=== PATIENT | female | born 1950 | race Caucasian/White ===

== ENCOUNTER 2019-12-13 18:41 | Emergency (ER) | payer OTHER ==
[2019-12-13 18:56] VITALS: TEMP 97.3; BMI 22.6
--- NOTE | 2019-12-13 19:58 | PDOC ---
History of Present Illness - General Chief Complaint: Blood Sugar Problem Stated Complaint: DIABETIC Time Seen by Provider: 12/13/19 19:58 History Source: Patient Exam Limitations: No Limitations - History of Present Illness Initial Comments: 12/13/19 19:58 Belle Ward is a 69F with PMH IDDM presenting with hypoglycemia. Patient was at sister's house at 4PM today, suddenly became diaphoretic and confused, sister recognized hypoglycemia and EMS called, patient brought to [facility] ED for further evaluation. BGM at that time 44. Patient now alert and oriented and back to baseline mental status. Last PO intake 12PM today had toast and some jelly. Ate some juice while waiting in ED. Medications: Janumet 500mg BID, metformin 1000mg, insulin #10, Lantus 40mg QS pre-prandial. Took all her insulin as scheduled today. Otherwise denies any symptoms at this time. No PSH Other meds: lisinopril, rosuvastatin, ASA NKDA Denies alcohol/tobacco/drugs Past History - Medical History Allergies/Adverse Reactions: Allergies Allergy/AdvReac Type Severity Reaction Status Date / Time No Known Allergies Allergy Verified 02/20/12 19:10 Home Medications: Ambulatory Orders Metoprolol Tartrate [Lopressor -] 25 mg PO DAILY 02/21/12 Simvastatin [Zocor -] 40 mg PO HS 02/21/12 Insulin (Novolog) [Novolog Flexpen -] 0 units SQ ACHS #0 pen 02/22/12 Lisinopril 20Mg/Hctz 12.5MG [Zestoretic 20/12.5 (Nf)] 1 tab PO DAILY 02/22/12 Sitagliptin Phosphate [Januvia -] 50 mg PO DAILY@0700 #0 tablet 02/22/12 metFORMIN HCL [Glucophage -] 500 mg PO BIDAC #0 tablet 02/22/12 COPD: No Diabetes: Yes (NIDDM) HTN: Yes Hypercholesterolemia: Yes - Psycho-Social/Smoking History Smoking Status: No Smoking History: Never smoked Have you smoked in the past 12 months: No Number of Cigarettes Smoked Daily: 0 Information on smoking cessation initiated: No - Substance Abuse Hx (Audit-C & DAST Scrn) How often the patient has a drink containing alcohol: Never Score: In Men: 4 or > Positive; In Women: 3 or > Positive: 0 Screen Result (Pos requires Nsg. Audit-10AR): Negative In the last yr the pt used illegal drug/Rx for NonMed reason: No Score: Yes response is considered Positive: 0 Screen Result (Positive result requires Nsg. DAST-10): Negative Review of Systems - Review of Systems Able to Perform ROS?: Yes Constitutional: Yes: Diaphoresis HEENTM: No: Symptoms Reported Respiratory: No: Cough, Shortness of Breath Cardiac (ROS): Yes: Lightheadedness. No: Palpitations, Syncope ABD/GI: No: Constipated, Diarrhea, Poor Appetite, Poor Fluid Intake : No: Symptoms Reported Musculoskeletal: No: Symptoms Reported Integumentary: No: Symptoms Reported Neurological: No: Symptoms reported Endocrine: No: Symptoms Reported Hematologic/Lymphatic: No: Symptoms Reported All Other Systems: Reviewed and Negative *Physical Exam - Vital Signs Last Vital Signs Temp Pulse Resp BP Pulse Ox 97.3 F L 90 20 160/74 99 12/13/19 18:49 12/13/19 18:49 12/13/19 18:49 12/13/19 18:49 12/13/19 18:49 - Physical Exam General Appearance: Yes: Nourished, Appropriately Dressed, Obese. No: Apparent Distress HEENT: positive: EOMI, GERMAN, Normal Voice, Symmetrical, Pharynx Normal, Hearing Grossly Normal. negative: Scleral Icterus (R), Scleral Icterus (L), Pharyngeal Erythema, Tonsillar Exudate Neck: positive: Normal Thyroid, Supple. negative: Tender, Rigid, Lymphadenopathy (R), Lymphadenopathy (L) Respiratory/Chest: positive: Lungs Clear, Normal Breath Sounds. negative: Chest Tender, Respiratory Distress, Accessory Muscle Use, Crackles, Rales, Rhonchi, Stridor, Wheezing Cardiovascular: positive: Regular Rhythm, Regular Rate. negative: Tachycardia, Irregularly Irregular Gastrointestinal/Abdominal: positive: Normal Bowel Sounds, Flat, Soft. negative: Tender, Organomegaly, Pulsatile Mass, Guarding, Rebound Musculoskeletal: positive: Normal Inspection. negative: CVA Tenderness, CVA Tenderness (R), CVA Tenderness (L), Decreased Range of Motion Extremity: positive: Normal Capillary Refill, Normal Inspection, Normal Range of Motion. negative: Tender Integumentary: positive: Normal Color, Dry, Warm. negative: Diaphoresis Neurologic: positive: Fully Oriented, Alert, Normal Mood/Affect, Normal Response, Motor Strength 5/5. negative: Confused, Disoriented ED Treatment Course - ADDITIONAL ORDERS Additional order review: Laboratory Results 12/13/19 18:51 POC Glucometer 149 12/13/19 18:51 POC Glucometer 149 Medical Decision Making - Medical Decision Making 12/13/19 20:36 Patient has history of IDDM and was hypoglycemic to 44 today, now back to [facility] [place]. BGM 150s. Has had one episode of this in the past at [facility]. Patient does take a lot of metformin and insulin and does not seem to have eaten much today. Discussed insulin use and checking BGM, patient demonstrates limitd understanding of how insulin works. VSS. Drinking juice and crackers, alert and oriented. Can safely discharge home with Dr. Cast for IDDM f/u. Recommend closer DM management and education. Discharge - Discharge Information Problems reviewed: Yes Clinical Impression/Diagnosis: Hypoglycemia Condition: Stable Disposition: HOME - Admission No - Follow up/Referral Referrals: Anna Cast MD [Primary Care Provider] - - Patient Discharge Instructions Patient Printed Discharge Instructions: DI for Diabetes Type 1 -- Adult Additional Instructions: Today you were evaluated for low blood sugar. You are feeling well now, and your blood sugar is normal now. You have to be careful to not use too much insulin, as this will cause your problems again. If this happens again, drink or eat something immediately and do not use your insulin. Please see Dr. Cast this week for further care and management of your diabetes. If you experience any worsening symptoms such as nausea, vomiting, confusion, and sweating, try to drink some juice and come back to the emergency room. - Post Discharge Activity
--- NOTE | 2019-12-13 20:59 | PDOC ---
Documentation entered by Melissa Perdomo SCRIBE, acting as scribe for Siri Aguilera MD. Siri Aguilera MD: This documentation has been prepared by the Conor mac Brenda, SCRIBE, under my direction and personally reviewed by me in its entirety. I confirm that the documentation accurately reflects all work, treatment, procedures, and medical decision making performed by me. Attending Attestation - Resident Resident Name: Maximo Wilhelm - ED Attending Attestation I have performed the following: I have examined & evaluated the patient, The case was reviewed & discussed with the resident, I agree w/resident's findings & plan, Exceptions are as noted - HPI HPI: 12/13/19 20:39 The patient is a 69 year old female, with a significant PMH of IDDM (on metformin - few episodes in past of hypoglycemia) who presents to the emergency department for evaluation of hypoglycemia, which she notes was 44 four hours ago. Patient states she ate toast for lunch and took her normal insulin and nothing else. The patient denies chest pain, shortness of breath, headache and dizziness. Denies fever, chills, nausea, vomiting, diarrhea and constipation. Denies dysuria, frequency, urgency and hematuria. Allergies: NKA Social history: No reported hx of tobacco use, alcohol use or illicit drug use. PCP: Segun - Physicial Exam PE: 12/13/19 20:58 NAD, well appearing rrr ctabl soft ntnd gait, blance, speech WNL A&O x 3 - Medical Decision Making 12/13/19 20:58 69yoF w/ epsode of hypoglycemia after takng insulin and not eating. Feeling fine, FS stable x multple hours by the time pt is evaluated in the ED. - DC. Discharge - Discharge Information Problems reviewed: Yes Clinical Impression/Diagnosis: Hypoglycemia Condition: Stable Disposition: HOME - Follow up/Referral Referrals: Anna Cast MD [Primary Care Provider] - - Patient Discharge Instructions Patient Printed Discharge Instructions: DI for Diabetes Type 1 -- Adult Additional Instructions: Today you were evaluated for low blood sugar. You are feeling well now, and your blood sugar is normal now. You have to be careful to not use too much insulin, as this will cause your problems again. Please see Dr. Segun for further care and management of your diabetes. - Post Discharge Activity
[2019-12-13 23:11] VITALS: BP 167/74; PULSE 85
== END 2019-12-13 21:20 | disposition home or self-care (01) ==
LOC: JER 18:41
DX: E13.649 Other specified diabetes mellitus with hypoglycemia without coma (principal)
CPT/HCPCS: 82962; 99283-25

== ENCOUNTER 2021-07-08 12:42 | Inpatient (IN) | payer OTHER ==
[2021-07-08] MEDS ORDERED: VANCOMYCIN 1 GM in D5W (PRE-DOCKED) 1,000 MG/250 ML IVPB ONE (14:46)
[2021-07-08] MEDS ORDERED: PIPERACILLIN/TAZOB 4.5 GM 4.5 GM in DEXTROSE 5%-WATER 100 ML IVPB ONE (14:48)
[2021-07-08 15:10] LABS: BASO % 1.2 % (0-2.0); EOS % 0.8 % (0-4.5); HEMOGLOBIN 11.3 GM/dL (10.7-15.3); LYMPH % 18.7 % (8-40); MCH 30.4 pg (25.7-33.7); MCHC 33.4 g/dl (32.0-36.0); MEAN CELL VOLUME 91.2 fl (80-96); MEAN PLT VOLUME 9.4 fl (7.5-11.1); MONO % 6.9 % (3.8-10.2); NEUT % 72.4 % (42.8-82.8); PLATELET COUNT 383 10^3/uL (134-434); RBC 3.73 M/mm3 (3.60-5.2); RDW 16.3 % (11.6-15.6); WHITE BLOOD COUNT 10.7 K/mm3 (4.0-10.0)
[2021-07-08] MEDS ORDERED: PIPERACILLIN/TAZOB 4.5 GM 4.5 GM/100 ML BAG IVPB ONE (15:13)
[2021-07-08] MEDS ORDERED: VANCOMYCIN 1 GRAM (PRE-DOCKED) 1,000 MG/250 ML BAG IVPB ONE (15:13)
[2021-07-08 15:16] LABS: INR 1.07 (0.83-1.09); PROTHROMBIN TIME (PATIENT) 12.3 SEC (9.7-13.0)
[2021-07-08 15:19] LABS: ACTIVATED PTT 36.3 SECONDS (25.2-36.5)
[2021-07-08 15:30] LABS: ALBUMIN 3.7 g/dl (3.4-5.0); BLOOD UREA NITROGEN 27.8 mg/dL (7-18)
[2021-07-08 15:35] LABS: BILIRUBIN,TOTAL 0.2 mg/dL (0.2-1); TOT PROT 7.2 g/dl (6.4-8.2)
[2021-07-08] MEDS ORDERED: ACETAMINOPHEN 325 MG TABLET (FP) PO ONE (18:05)
[2021-07-08] MEDS ORDERED: ACETAMINOPHEN 325 MG TABLET (FP) ONE (18:23)
[2021-07-08] MEDS ORDERED: PIPERACILLIN/TAZOBACTAM 3.375 GM VIAL IVPB ONE (22:12)
[2021-07-08] MEDS ORDERED: DEXTROSE 5%-WATER - 50 ML IVPB ONE (22:12)
[2021-07-08] MEDS: HEPARIN NA (PORCINE) 5,000 UNITS/ML 1ML VIAL SQ SCH (22:23)
[2021-07-08] MEDS: INSULIN SLIDING SCALE (NOVOLOG) 1 VIAL SQ SCH (22:26)
[2021-07-08] MEDS: PIPERACILLIN/TAZOB 3.375 GM 3.375 GM in DEXTROSE 5%-WATER - 50 ML IVPB SCH (23:26)
[2021-07-09] MEDS: ACETAMINOPHEN 325 MG TABLET (FP) PO PRN ×4 (01:37→23:54)
[2021-07-09] MEDS: INSULIN SLIDING SCALE (NOVOLOG) 1 VIAL SQ SCH ×4 (06:07→21:40)
[2021-07-09] MEDS ORDERED: DEXTROSE 5%-WATER - 50 ML IVPB ONE ×2 (08:12→17:14)
[2021-07-09] MEDS ORDERED: PIPERACILLIN/TAZOBACTAM 3.375 GM VIAL IVPB ONE ×2 (08:12→17:14)
[2021-07-09] MEDS: HEPARIN NA (PORCINE) 5,000 UNITS/ML 1ML VIAL SQ SCH ×2 (09:00→21:39)
[2021-07-09] MEDS: LISINOPRIL 10 MG TABLET PO SCH (09:00)
[2021-07-09] MEDS: ROSUVASTATIN CA 5 MG TABLET PO SCH (09:00)
[2021-07-09 09:02] LABS: HEMATOCRIT 33.8 % (32.4-45.2); HEMOGLOBIN 11.2 GM/dL (10.7-15.3); MCH 30.3 pg (25.7-33.7); MCHC 33.2 g/dl (32.0-36.0); MEAN CELL VOLUME 91.2 fl (80-96); MEAN PLT VOLUME 8.9 fl (7.5-11.1); PLATELET COUNT 365 10^3/uL (134-434); RDW 16.1 % (11.6-15.6); WHITE BLOOD COUNT 9.3 K/mm3 (4.0-10.0)
[2021-07-09] MEDS: PIPERACILLIN/TAZOB 3.375 GM 3.375 GM in DEXTROSE 5%-WATER - 50 ML IVPB SCH ×2 (09:03→17:33)
[2021-07-09 09:26] LABS: ALBUMIN 3.6 g/dl (3.4-5.0); CALCIUM 9.2 mg/dL (8.5-10.1); CREATININE 0.8 mg/dL (0.55-1.3)
[2021-07-09 09:27] LABS: BILIRUBIN,TOTAL 0.4 mg/dL (0.2-1); MAGNESIUM 1.9 mg/dL (1.8-2.4); TOT PROT 6.9 g/dl (6.4-8.2)
[2021-07-09 09:33] LABS: BLOOD UREA NITROGEN 25.8 mg/dL (7-18)
[2021-07-09 10:56] LABS: ANISOCYTOSIS 0; HELMET CELLS 0; HOWELL-JOLLY BODIES 0; MACROCYTOSIS 0; OVALOCYTE 0; PLATELET ESTIMATE NORMAL; ROULEAU 0; SICKELED CELLS 0; TARGET CELLS 0; TEAR DROP CELLS 0; TOXIC GRANULATION 0
[2021-07-09] MEDS ORDERED: INSULIN (NOVOLOG) ASPART 100 UNITS/ML 10ML VIAL ONE (11:47)
[2021-07-10] MEDS ORDERED: DEXTROSE 5%-WATER - 50 ML IVPB ONE ×3 (01:40→16:49)
[2021-07-10] MEDS ORDERED: PIPERACILLIN/TAZOBACTAM 3.375 GM VIAL IVPB ONE ×3 (01:40→16:49)
[2021-07-10] MEDS: PIPERACILLIN/TAZOB 3.375 GM 3.375 GM in DEXTROSE 5%-WATER - 50 ML IVPB SCH ×3 (02:27→17:36)
[2021-07-10] MEDS: INSULIN SLIDING SCALE (NOVOLOG) 1 VIAL SQ SCH ×4 (06:04→21:12)
[2021-07-10] MEDS: HEPARIN NA (PORCINE) 5,000 UNITS/ML 1ML VIAL SQ SCH ×2 (11:42→21:12)
[2021-07-10] MEDS: LISINOPRIL 10 MG TABLET PO SCH (11:42)
[2021-07-10] MEDS: ROSUVASTATIN CA 5 MG TABLET PO SCH (11:43)
[2021-07-10] MEDS: SODIUM CHLORIDE 1,000 ML IV SCH (12:19)
[2021-07-10 13:20] VITALS: BMI 29.1
[2021-07-10] MEDS: ACETAMINOPHEN 325 MG TABLET (FP) PO PRN ×2 (15:07→21:12)
[2021-07-11] MEDS ORDERED: PIPERACILLIN/TAZOBACTAM 3.375 GM VIAL IVPB ONE ×4 (00:43→16:54)
[2021-07-11] MEDS ORDERED: DEXTROSE 5%-WATER - 50 ML IVPB ONE ×2 (00:43→16:54)
[2021-07-11] MEDS: SODIUM CHLORIDE 1,000 ML IV SCH ×3 (01:09→22:07)
[2021-07-11] MEDS: PIPERACILLIN/TAZOB 3.375 GM 3.375 GM in DEXTROSE 5%-WATER - 50 ML IVPB SCH ×3 (01:09→17:08)
[2021-07-11] MEDS: INSULIN SLIDING SCALE (NOVOLOG) 1 VIAL SQ SCH ×4 (06:06→22:02)
[2021-07-11] MEDS ORDERED: MIDAZOLAM HCL 2 MG/2 ML SINGLE DOSE VIAL ONE (07:21)
[2021-07-11] MEDS ORDERED: NITROGLYCERIN 50 MG/10 ML VIAL IVPB ONE (07:34)
[2021-07-11] MEDS ORDERED: LIDOCAINE HCL 1%, 10 MG/ML (20ML VIAL) ONE (07:35)
[2021-07-11] MEDS ORDERED: HEPARIN NA (PORCINE) 5,000 UNITS/ML 1ML VIAL ONE (07:35)
[2021-07-11] MEDS ORDERED: LIDOCAINE HCL 1%, 10 MG/ML (20ML VIAL) NR ONE ×2 (07:37→09:38)
[2021-07-11] MEDS ORDERED: HEPARIN NA (PORCINE) 5,000 UNITS/ML 1ML VIAL SQ ONE ×2 (07:38→09:44)
[2021-07-11] MEDS ORDERED: IOVERSOL 320 MG/ML ML IV ONE ×2 (07:39→09:44)
[2021-07-11 08:37] LABS: INR 1.09 (0.83-1.09); PROTHROMBIN TIME (PATIENT) 12.6 SEC (9.7-13.0)
[2021-07-11] MEDS ORDERED: LACTATED RINGERS SOLUTION 1,000 ML IV SCH ×2 (10:45→11:31)
[2021-07-11] MEDS ORDERED: PROTAMINE SULFATE 50 MG/5 ML VIAL ONE ×2 (11:34→11:35)
[2021-07-11] MEDS ORDERED: CLOPIDOGREL BISULFATE 75 MG TABLET (FP) ONE (12:43)
[2021-07-11] MEDS: HEPARIN NA (PORCINE) 5,000 UNITS/ML 1ML VIAL SQ SCH ×2 (12:58→21:48)
[2021-07-11] MEDS: ROSUVASTATIN CA 5 MG TABLET PO SCH (12:58)
[2021-07-11] MEDS: LISINOPRIL 10 MG TABLET PO SCH (12:59)
[2021-07-11] MEDS: CLOPIDOGREL BISULFATE 75 MG TABLET (FP) PO SCH (13:05)
[2021-07-11] MEDS ORDERED: PROTAMINE SULFATE 50 MG/5 ML VIAL IVPUSH ONE (13:26)
[2021-07-11] MEDS: ACETAMINOPHEN 325 MG TABLET (FP) PO PRN ×2 (14:13→21:47)
[2021-07-11] MEDS ORDERED: traMADol HCL 50 MG TABLET PO PRN (16:28)
[2021-07-11] MEDS ORDERED: KETOROLAC TROMETHAMINE 30 MG/1 ML VIAL IVPUSH PRN (16:28)
[2021-07-12] MEDS ORDERED: DEXTROSE 5%-WATER - 50 ML IVPB ONE ×3 (00:24→16:41)
[2021-07-12] MEDS ORDERED: PIPERACILLIN/TAZOBACTAM 3.375 GM VIAL IVPB ONE ×3 (00:24→16:40)
[2021-07-12] MEDS: PIPERACILLIN/TAZOB 3.375 GM 3.375 GM in DEXTROSE 5%-WATER - 50 ML IVPB SCH ×3 (01:32→17:41)
[2021-07-12] MEDS: ACETAMINOPHEN 325 MG TABLET (FP) PO PRN ×3 (06:27→21:51)
[2021-07-12] MEDS: INSULIN SLIDING SCALE (NOVOLOG) 1 VIAL SQ SCH ×4 (06:37→21:53)
[2021-07-12 09:06] LABS: HEMATOCRIT 26.1 % (32.4-45.2); HEMOGLOBIN 8.5 GM/dL (10.7-15.3); MCH 30.2 pg (25.7-33.7); MCHC 32.7 g/dl (32.0-36.0); MEAN CELL VOLUME 92.2 fl (80-96); MEAN PLT VOLUME 9.1 fl (7.5-11.1); PLATELET COUNT 254 10^3/uL (134-434); RBC 2.83 M/mm3 (3.60-5.2); RDW 15.9 % (11.6-15.6); WHITE BLOOD COUNT 6.4 K/mm3 (4.0-10.0)
[2021-07-12 09:24] LABS: CALCIUM 7.9 mg/dL (8.5-10.1)
[2021-07-12 09:25] LABS: BLOOD UREA NITROGEN 22.1 mg/dL (7-18)
[2021-07-12 09:28] LABS: CREATININE 0.8 mg/dL (0.55-1.3)
[2021-07-12 09:30] LABS: BILIRUBIN,TOTAL 0.5 mg/dL (0.2-1); TOT PROT 5.2 g/dl (6.4-8.2)
[2021-07-12 09:32] LABS: ALBUMIN 2.7 g/dl (3.4-5.0)
[2021-07-12] MEDS: ROSUVASTATIN CA 5 MG TABLET PO SCH (10:13)
[2021-07-12] MEDS: HEPARIN NA (PORCINE) 5,000 UNITS/ML 1ML VIAL SQ SCH ×2 (10:14→22:02)
[2021-07-12] MEDS: LISINOPRIL 10 MG TABLET PO SCH (10:14)
[2021-07-12] MEDS: CLOPIDOGREL BISULFATE 75 MG TABLET (FP) PO SCH (10:14)
[2021-07-13] MEDS ORDERED: PIPERACILLIN/TAZOBACTAM 3.375 GM VIAL IVPB ONE ×3 (00:16→17:24)
[2021-07-13] MEDS ORDERED: DEXTROSE 5%-WATER - 50 ML IVPB ONE ×3 (00:16→17:25)
[2021-07-13] MEDS: PIPERACILLIN/TAZOB 3.375 GM 3.375 GM in DEXTROSE 5%-WATER - 50 ML IVPB SCH ×3 (01:16→17:28)
[2021-07-13] MEDS: ACETAMINOPHEN 325 MG TABLET (FP) PO PRN ×3 (05:59→22:15)
[2021-07-13] MEDS: INSULIN SLIDING SCALE (NOVOLOG) 1 VIAL SQ SCH ×4 (06:00→22:07)
[2021-07-13 08:20] LABS: HEMATOCRIT 26.4 % (32.4-45.2); HEMOGLOBIN 8.7 GM/dL (10.7-15.3); MCH 30.1 pg (25.7-33.7); MCHC 32.8 g/dl (32.0-36.0); MEAN CELL VOLUME 91.5 fl (80-96); PLATELET COUNT 250 10^3/uL (134-434); RBC 2.88 M/mm3 (3.60-5.2); WHITE BLOOD COUNT 6.3 K/mm3 (4.0-10.0)
[2021-07-13 08:30] LABS: CALCIUM 8.7 mg/dL (8.5-10.1)
[2021-07-13 08:31] LABS: IRON SERUM 68 ug/dL (50-175); MAGNESIUM 1.9 mg/dL (1.8-2.4)
[2021-07-13 08:34] LABS: CREATININE 0.9 mg/dL (0.55-1.3)
[2021-07-13 08:38] LABS: TOTAL IRON BINDING CAPACITY 221 ug/dL (250-450)
[2021-07-13 10:10] LABS: INR 1.13 (0.83-1.09)
[2021-07-13] MEDS: LISINOPRIL 10 MG TABLET PO SCH (10:28)
[2021-07-13] MEDS: ROSUVASTATIN CA 5 MG TABLET PO SCH (10:29)
[2021-07-13] MEDS ORDERED: HEPARIN NA (PORCINE) 5,000 UNITS/ML 1ML VIAL SQ ONE (18:23)
[2021-07-14] MEDS ORDERED: PIPERACILLIN/TAZOBACTAM 3.375 GM VIAL IVPB ONE ×3 (01:03→18:11)
[2021-07-14] MEDS ORDERED: DEXTROSE 5%-WATER - 50 ML IVPB ONE ×3 (01:03→18:11)
[2021-07-14] MEDS: PIPERACILLIN/TAZOB 3.375 GM 3.375 GM in DEXTROSE 5%-WATER - 50 ML IVPB SCH ×3 (02:16→18:16)
[2021-07-14] MEDS: INSULIN SLIDING SCALE (NOVOLOG) 1 VIAL SQ SCH ×4 (07:03→21:34)
[2021-07-14] MEDS: ACETAMINOPHEN 325 MG TABLET (FP) PO PRN ×2 (11:21→21:30)
[2021-07-14] MEDS: ROSUVASTATIN CA 5 MG TABLET PO SCH (11:22)
[2021-07-14] MEDS: LISINOPRIL 10 MG TABLET PO SCH (11:22)
[2021-07-14] MEDS ORDERED: INSULIN (NOVOLOG) ASPART 100 UNITS/ML 10ML VIAL ONE (21:21)
[2021-07-14] MEDS ORDERED: INSULIN (LEVEMIR) 100 UNITS/ML UNITS SQ SCH ×2 (22:00→23:05)
[2021-07-15] MEDS ORDERED: PIPERACILLIN/TAZOBACTAM 3.375 GM VIAL IVPB ONE ×3 (01:55→16:59)
[2021-07-15] MEDS ORDERED: DEXTROSE 5%-WATER - 50 ML IVPB ONE ×3 (01:56→17:00)
[2021-07-15] MEDS: PIPERACILLIN/TAZOB 3.375 GM 3.375 GM in DEXTROSE 5%-WATER - 50 ML IVPB SCH ×3 (02:25→17:29)
[2021-07-15] MEDS: ACETAMINOPHEN 325 MG TABLET (FP) PO PRN ×3 (03:35→17:29)
[2021-07-15] MEDS: INSULIN (LEVEMIR) 100 UNITS/ML UNITS SQ SCH ×2 (06:11→21:03)
[2021-07-15] MEDS: INSULIN (NOVOLOG) ASPART 100 UNITS/ML 10ML VIAL SQ SCH ×3 (06:11→16:33)
[2021-07-15] MEDS: INSULIN SLIDING SCALE (NOVOLOG) 1 VIAL SQ SCH ×4 (06:11→21:04)
[2021-07-15 09:04] LABS: HEMATOCRIT 29.1 % (32.4-45.2); HEMOGLOBIN 9.8 GM/dL (10.7-15.3); MCH 30.7 pg (25.7-33.7); MCHC 33.5 g/dl (32.0-36.0); MEAN CELL VOLUME 91.7 fl (80-96); MEAN PLT VOLUME 8.8 fl (7.5-11.1); PLATELET COUNT 313 10^3/uL (134-434); RBC 3.17 M/mm3 (3.60-5.2); RDW 16.6 % (11.6-15.6)
[2021-07-15 09:29] LABS: BLOOD UREA NITROGEN 24.2 mg/dL (7-18); CALCIUM 8.8 mg/dL (8.5-10.1); MAGNESIUM 2.1 mg/dL (1.8-2.4)
[2021-07-15 09:31] LABS: CREATININE 0.9 mg/dL (0.55-1.3)
[2021-07-15] MEDS: LISINOPRIL 10 MG TABLET PO SCH (09:50)
[2021-07-15] MEDS: ROSUVASTATIN CA 5 MG TABLET PO SCH (09:50)
[2021-07-15 16:23] LABS: INR 1.1 (0.83-1.09); PROTHROMBIN TIME (PATIENT) 12.7 SEC (9.7-13.0)
[2021-07-15] MEDS ORDERED: INSULIN (LEVEMIR) 100 UNITS/ML UNITS SQ SCH ×2 (22:29→22:30)
[2021-07-16] MEDS ORDERED: PIPERACILLIN/TAZOBACTAM 3.375 GM VIAL IVPB ONE ×2 (01:00→16:39)
[2021-07-16] MEDS ORDERED: DEXTROSE 5%-WATER - 50 ML IVPB ONE ×2 (01:00→16:39)
[2021-07-16] MEDS: PIPERACILLIN/TAZOB 3.375 GM 3.375 GM in DEXTROSE 5%-WATER - 50 ML IVPB SCH ×3 (01:22→16:59)
[2021-07-16] MEDS: INSULIN (NOVOLOG) ASPART 100 UNITS/ML 10ML VIAL SQ SCH ×2 (06:03→16:50)
[2021-07-16] MEDS: INSULIN SLIDING SCALE (NOVOLOG) 1 VIAL SQ SCH ×3 (06:04→21:05)
[2021-07-16] MEDS ORDERED: PROPOFOL 20 ML ONE ×3 (07:18→09:24)
[2021-07-16] MEDS ORDERED: MIDAZOLAM HCL 2 MG/2 ML SINGLE DOSE VIAL ONE ×2 (07:18→09:24)
[2021-07-16] MEDS ORDERED: PROMETHAZINE HCL 25 MG/1 ML VIAL IVPB PRN ×2 (09:07→10:42)
[2021-07-16] MEDS ORDERED: ONDANSETRON 4 MG/2 ML VIAL IVPUSH PRN ×2 (09:07→10:42)
[2021-07-16] MEDS ORDERED: LACTATED RINGERS SOLUTION 1,000 ML IV SCH (09:15)
[2021-07-16] MEDS ORDERED: DEXAMETHASONE SOD PHOSPHATE 4 MG/1 ML VIAL ONE (09:15)
[2021-07-16] MEDS ORDERED: LIDOCAINE HCL 1%, 10 MG/ML (20ML VIAL) ONE (09:15)
[2021-07-16] MEDS ORDERED: BUPIVACAINE HCL/PF 0.5% (5MG/ML) 10 ML VIAL ONE (09:16)
[2021-07-16] MEDS ORDERED: fentaNYL CITRATE 250 MCG/5 ML VIAL ONE (09:24)
[2021-07-16] MEDS ORDERED: SODIUM CHLORIDE 0.9% P/F 10 ML VIAL IJ ONE (09:38)
[2021-07-16] MEDS ORDERED: ceFAZolin SODIUM 1 GM VIAL ONE (09:38)
[2021-07-16] MEDS ORDERED: LIDOCAINE HCL/PF 2% SDV 5ML VIAL ONE (09:42)
[2021-07-16] MEDS ORDERED: LIDOCAINE HCL 1%, 10 MG/ML (20ML VIAL) INF ONE (09:43)
[2021-07-16] MEDS ORDERED: BUPIVACAINE HCL/PF 0.5% (5MG/ML) 10 ML VIAL IJ ONE (09:43)
[2021-07-16] MEDS ORDERED: GENTAMICIN SO4 80 MG/2 ML VIAL ONE (09:59)
[2021-07-16] MEDS ORDERED: GENTAMICIN SO4 80 MG/2 ML VIAL IVPB ONE (10:01)
[2021-07-16] MEDS ORDERED: KETOROLAC TROMETHAMINE 30 MG/1 ML VIAL IVPUSH PRN (10:42)
[2021-07-16] MEDS: LACTATED RINGERS SOLUTION 1,000 ML IV SCH (11:41)
[2021-07-16] MEDS: LISINOPRIL 10 MG TABLET PO SCH (11:42)
[2021-07-16] MEDS: ROSUVASTATIN CA 5 MG TABLET PO SCH (11:42)
[2021-07-16] MEDS: ACETAMINOPHEN 325 MG TABLET (FP) PO PRN (16:56)
[2021-07-16] MEDS: INSULIN (LEVEMIR) 100 UNITS/ML UNITS SQ SCH (21:04)
[2021-07-17] MEDS ORDERED: DEXTROSE 5%-WATER - 50 ML IVPB ONE ×3 (00:54→17:18)
[2021-07-17] MEDS ORDERED: PIPERACILLIN/TAZOBACTAM 3.375 GM VIAL IVPB ONE ×3 (00:54→17:18)
[2021-07-17] MEDS: PIPERACILLIN/TAZOB 3.375 GM 3.375 GM in DEXTROSE 5%-WATER - 50 ML IVPB SCH ×3 (01:21→17:48)
[2021-07-17] MEDS: ACETAMINOPHEN 325 MG TABLET (FP) PO PRN ×3 (01:44→22:28)
[2021-07-17] MEDS: INSULIN (LEVEMIR) 100 UNITS/ML UNITS SQ SCH ×2 (06:32→22:26)
[2021-07-17] MEDS: INSULIN (NOVOLOG) ASPART 100 UNITS/ML 10ML VIAL SQ SCH ×3 (06:33→17:14)
[2021-07-17] MEDS: INSULIN SLIDING SCALE (NOVOLOG) 1 VIAL SQ SCH ×4 (06:33→22:24)
[2021-07-17 08:40] LABS: HEMATOCRIT 27.6 % (32.4-45.2); HEMOGLOBIN 9.2 GM/dL (10.7-15.3); MCH 30.7 pg (25.7-33.7); MCHC 33.3 g/dl (32.0-36.0); MEAN CELL VOLUME 92.3 fl (80-96); MEAN PLT VOLUME 8.7 fl (7.5-11.1); PLATELET COUNT 290 10^3/uL (134-434); RBC 2.99 M/mm3 (3.60-5.2); WHITE BLOOD COUNT 8.7 K/mm3 (4.0-10.0)
[2021-07-17 09:01] LABS: ALBUMIN 2.8 g/dl (3.4-5.0); BLOOD UREA NITROGEN 31.2 mg/dL (7-18); CALCIUM 8.9 mg/dL (8.5-10.1)
[2021-07-17 09:02] LABS: CREATININE 0.9 mg/dL (0.55-1.3)
[2021-07-17 09:03] LABS: BILIRUBIN,TOTAL 0.3 mg/dL (0.2-1)
[2021-07-17 09:04] LABS: TOT PROT 5.7 g/dl (6.4-8.2)
[2021-07-17] MEDS: ROSUVASTATIN CA 5 MG TABLET PO SCH (09:14)
[2021-07-17] MEDS: LISINOPRIL 10 MG TABLET PO SCH (09:14)
[2021-07-17] MEDS: LACTATED RINGERS SOLUTION 1,000 ML IV SCH (11:35)
[2021-07-18] MEDS ORDERED: DEXTROSE 5%-WATER - 50 ML IVPB ONE ×3 (00:59→17:20)
[2021-07-18] MEDS ORDERED: PIPERACILLIN/TAZOBACTAM 3.375 GM VIAL IVPB ONE ×3 (00:59→17:20)
[2021-07-18] MEDS: PIPERACILLIN/TAZOB 3.375 GM 3.375 GM in DEXTROSE 5%-WATER - 50 ML IVPB SCH ×3 (02:24→17:31)
[2021-07-18] MEDS: INSULIN SLIDING SCALE (NOVOLOG) 1 VIAL SQ SCH ×4 (06:34→21:47)
[2021-07-18] MEDS: INSULIN (LEVEMIR) 100 UNITS/ML UNITS SQ SCH ×2 (06:35→21:49)
[2021-07-18] MEDS: INSULIN (NOVOLOG) ASPART 100 UNITS/ML 10ML VIAL SQ SCH ×3 (06:35→16:48)
[2021-07-18] MEDS: ROSUVASTATIN CA 5 MG TABLET PO SCH (09:18)
[2021-07-18] MEDS: LISINOPRIL 10 MG TABLET PO SCH (09:18)
[2021-07-18] MEDS: ACETAMINOPHEN 325 MG TABLET (FP) PO PRN ×2 (16:41→23:47)
[2021-07-19] MEDS ORDERED: PIPERACILLIN/TAZOBACTAM 3.375 GM VIAL IVPB ONE ×2 (01:07→09:24)
[2021-07-19] MEDS ORDERED: DEXTROSE 5%-WATER - 50 ML IVPB ONE ×2 (01:07→09:24)
[2021-07-19] MEDS: PIPERACILLIN/TAZOB 3.375 GM 3.375 GM in DEXTROSE 5%-WATER - 50 ML IVPB SCH ×2 (02:29→11:54)
[2021-07-19] MEDS: INSULIN SLIDING SCALE (NOVOLOG) 1 VIAL SQ SCH ×2 (06:13→12:11)
[2021-07-19] MEDS: INSULIN (NOVOLOG) ASPART 100 UNITS/ML 10ML VIAL SQ SCH ×2 (06:34→12:11)
[2021-07-19] MEDS: INSULIN (LEVEMIR) 100 UNITS/ML UNITS SQ SCH (06:38)
[2021-07-19] MEDS: ACETAMINOPHEN 325 MG TABLET (FP) PO PRN ×2 (06:38→12:03)
[2021-07-19 09:11] VITALS: BP 134/55; PULSE 102; TEMP 98.2
[2021-07-19] MEDS: LISINOPRIL 10 MG TABLET PO SCH (11:54)
[2021-07-19] MEDS: ROSUVASTATIN CA 5 MG TABLET PO SCH (11:54)
== END 2021-07-19 13:30 | disposition home health service (06) | DRG 271 ==
LOC: JER 12:42 → JERBED 14:55 → J7W 20:27
PROVIDERS: ADMIT Family Medicine; ATTEND Family Medicine
PROC: 04CN3ZZ Extirpation of Matter from Left Popliteal Artery, Percutaneous Approach (ICD-10-PCS; 2021-07-11)
PROC: 04CL3ZZ Extirpation of Matter from Left Femoral Artery, Percutaneous Approach (ICD-10-PCS; 2021-07-11)
PROC: 047L341 Dilation of Left Femoral Artery with Drug-eluting Intraluminal Device, using Drug-Coated Balloon, Percutaneous Approach (ICD-10-PCS; 2021-07-11)
PROC: 047U341 Dilation of Left Peroneal Artery with Drug-eluting Intraluminal Device, using Drug-Coated Balloon, Percutaneous Approach (ICD-10-PCS; 2021-07-11)
PROC: 3E05317 Introduction of Other Thrombolytic into Peripheral Artery, Percutaneous Approach (ICD-10-PCS; 2021-07-11)
PROC: B41DZZZ Fluoroscopy of Aorta and Bilateral Lower Extremity Arteries (ICD-10-PCS; 2021-07-11)
PROC: 0HDNXZZ Extraction of Left Foot Skin, External Approach (ICD-10-PCS; 2021-07-16)
PROC: 0Y6W0Z0 Detachment at Left 4th Toe, Complete, Open Approach (ICD-10-PCS; principal; 2021-07-16 08:30)
DX: E11.52 Type 2 diabetes mellitus with diabetic peripheral angiopathy with gangrene (principal); I96 Gangrene, not elsewhere classified; M86.172 Other acute osteomyelitis, left ankle and foot; E11.69 Type 2 diabetes mellitus with other specified complication; E11.40 Type 2 diabetes mellitus with diabetic neuropathy, unspecified; I10 Essential (primary) hypertension; E78.5 Hyperlipidemia, unspecified; F79 Unspecified intellectual disabilities; E11.65 Type 2 diabetes mellitus with hyperglycemia
CPT/HCPCS: 36415; 73630-TC-LT; 73720-LT; 76000-TC-FY; 80048; 80053; 82962; 83036; 83540; 83550; 83735; 84443; 85025; 85027; 85610; 85651; 85730; 86140; 86850; 86900; 86901; 87040; 87070; 87205; 88305-TC; 88311-TC; 93005; 93010; 93926-TC; 94760; 99285-25; C9803; J1644; U0003; U0005

== ENCOUNTER 2024-09-05 19:10 | Inpatient (IN) | payer OTHER ==
[2024-09-05 20:18] LABS: VENOUS BASE EXCESS -1.3 mmol/L (-2-2); VENOUS O2 SATURATION 74.7 % (70-80); VENOUS PCO2 36.7 mmHg (38-52); VENOUS PH 7.413 (7.310-7.410)
[2024-09-05 20:21] LABS: ABSOLUTE IMMATURE GRANULOCYTES 0.13 x10^3/uL (0.0-0.031); BASOPHILS # 0.11 x10^3/uL (0.01-0.08); EOSINOPHIL % 1.7 % (0.7-5.8); EOSINOPHILS # 0.12 x10^3/uL (0.04-0.36); HEMATOCRIT 30.9 % (34.1-44.9); MCHC 32.4 g/dl (32.2-35.5); MEAN PLT VOLUME 11.8 fl (9.4-12.3); MONOCYTE # 0.65 x10^3/uL (0.24-0.86); MONOCYTE % 9.2 % (4.7-12.5); PLATELET COUNT 310 x10^3/uL (182-369); RDW 15.4 % (12.4-16.6)
[2024-09-05 20:34] LABS: CHLORIDE 97 mmol/L (98-107); POTASSIUM 5.1 mmol/L (3.5-5.1); SODIUM 131 mmol/L (136-145)
[2024-09-05 20:37] LABS: MAGNESIUM 1.9 mg/dL (1.8-2.4)
[2024-09-05 20:38] LABS: ALBUMIN 3.9 g/dl (3.4-5.0); ANION GAP 11 mmol/L (4-13); BLOOD UREA NITROGEN 26.8 mg/dL (7-18); CO2 24 mmol/L (21-32)
[2024-09-05 20:40] LABS: CREATININE 1.7 mg/dL (0.55-1.3); SGOT/AST 12 U/L (15-37); SGPT/ALT 24 U/L (13-61)
[2024-09-05 20:41] LABS: PHOSPHOROUS 3.7 mg/dL (2.5-4.9)
[2024-09-05 20:42] LABS: TOT PROT 6.6 g/dl (6.4-8.2)
[2024-09-05 20:43] LABS: BILIRUBIN,TOTAL 0.6 mg/dL (0.2-1)
[2024-09-05 20:44] LABS: ALK PHOS 141 U/L (45-117)
[2024-09-05 21:05] LABS: GLUCOSE,RANDOM 722 mg/dL (74-106)
[2024-09-05] MEDS: LACTATED RINGERS SOLUTION 1000 ML INFUS.BAG IV ONE ×2 (21:09→23:02)
[2024-09-05] MEDS ORDERED: INSULIN (LEVEMIR) 100 UNITS/ML UNITS SQ ONE (21:12)
[2024-09-05] MEDS ORDERED: INSULIN REGULAR HUMAN 100 UNITS/ML *VIAL ONE (21:56)
[2024-09-05] MEDS ORDERED: INSULIN GLARGINE (LANTUS) 100 UNITS/ML UNITS SQ ONE (22:08)
[2024-09-05] MEDS: INSULIN GLARGINE (LANTUS) 100 UNITS/ML UNITS SQ ONE (22:13)
[2024-09-05 23:23] LABS: URINE APPEARANCE Clear; URINE BILIRUBIN Negative (NEGATIVE); URINE COLOR Yellow; URINE GLUCOSE (UA) 3+ (NEGATIVE); URINE KETONE 1+ (NEGATIVE); URINE LEUK ESTERASE 1+ (NEGATIVE); URINE NITRITE Negative (NEGATIVE); URINE PROTEIN Negative (NEGATIVE); URINE UROBILINOGEN 0.2 mg/dL (0.2-1.0)
[2024-09-05 23:51] LABS: CHLORIDE 102 mmol/L (98-107); POTASSIUM 4.9 mmol/L (3.5-5.1); SODIUM 133 mmol/L (136-145)
[2024-09-05] MEDS: LACTATED RINGERS SOLUTION 1,000 ML/1,000 ML INFUS.BAG IV STA (23:51)
[2024-09-05] MEDS: INSULIN (NOVOLOG) ASPART 100 UNITS/ML 10ML VIAL SQ ONE (23:51)
[2024-09-05 23:52] LABS: CALCIUM 8.6 mg/dL (8.5-10.1)
[2024-09-05 23:53] LABS: ANION GAP 7 mmol/L (4-13); BLOOD UREA NITROGEN 27.1 mg/dL (7-18); CO2 25 mmol/L (21-32); MAGNESIUM 1.6 mg/dL (1.8-2.4)
[2024-09-05 23:56] LABS: CREATININE 1.4 mg/dL (0.55-1.3)
[2024-09-06 00:02] LABS: GLUCOSE,RANDOM 555 mg/dL (74-106)
[2024-09-06] MEDS ORDERED: INSULIN REGULAR 100 UNITS in SODIUM CHLORIDE 99 ML IVPB SCH (00:15)
[2024-09-06] MEDS: MAGNESIUM SULFATE IN WATER 2 GM/50 ML IVPB IVPB ONE (00:31)
[2024-09-06] MEDS ORDERED: MAGNESIUM SULFATE IN WATER 2 GM/50 ML IVPB IVPB ONE (00:34)
[2024-09-06 01:43] LABS: POTASSIUM 4.5 mmol/L (3.5-5.1)
[2024-09-06 01:44] LABS: CALCIUM 8.8 mg/dL (8.5-10.1)
[2024-09-06 01:45] LABS: BLOOD UREA NITROGEN 25.7 mg/dL (7-18)
[2024-09-06 01:48] LABS: CREATININE 1.3 mg/dL (0.55-1.3)
[2024-09-06] MEDS ORDERED: ACETAMINOPHEN 325 MG TABLET (FP) PO PRN (01:48)
[2024-09-06] MEDS ORDERED: DOCUSATE SODIUM 100 MG CAPSULE (FP) PO PRN (01:48)
[2024-09-06] MEDS: LACTATED RINGERS SOLUTION 1,000 ML IV SCH (03:00)
[2024-09-06] MEDS: LACTATED RINGERS SOLUTION 1,000 ML/1,000 ML INFUS.BAG IV SCH (03:00)
[2024-09-06] MEDS: INSULIN REGULAR HUMAN 100 UNITS/ML *VIAL SQ ONE (03:07)
[2024-09-06 03:32] VITALS: BMI 20.9
[2024-09-06] MEDS: INSULIN GLARGINE (LANTUS) 100 UNITS/ML UNITS SQ SCH (07:57)
[2024-09-06 09:16] LABS: ABSOLUTE IMMATURE GRANULOCYTES 0.19 x10^3/uL (0.0-0.031); BASOPHILS # 0.06 x10^3/uL (0.01-0.08); EOSINOPHIL % 0.8 % (0.7-5.8); EOSINOPHILS # 0.08 x10^3/uL (0.04-0.36); HEMATOCRIT 29.8 % (34.1-44.9); HEMOGLOBIN 9.7 g/dL (11.2-15.7); MCHC 32.6 g/dl (32.2-35.5); MEAN CELL VOLUME 101.4 fl (79.4-94.8); MEAN PLT VOLUME 11.2 fl (9.4-12.3); MONOCYTE # 0.48 x10^3/uL (0.24-0.86); MONOCYTE % 4.9 % (4.7-12.5); PLATELET COUNT 288 x10^3/uL (182-369); RDW 15.2 % (12.4-16.6)
[2024-09-06 09:23] LABS: POTASSIUM 4.4 mmol/L (3.5-5.1)
[2024-09-06 09:25] LABS: CALCIUM 8.5 mg/dL (8.5-10.1)
[2024-09-06 09:26] LABS: BLOOD UREA NITROGEN 20.8 mg/dL (7-18)
[2024-09-06 09:27] LABS: IRON SERUM 61 ug/dL (50-175); TOTAL IRON BINDING CAPACITY 270 ug/dL (250-450)
[2024-09-06 09:28] LABS: CREATININE 0.8 mg/dL (0.55-1.3)
[2024-09-06] MEDS: ASPIRIN 81 MG CHEWABLE TABLETS PO SCH (09:28)
[2024-09-06] MEDS: LISINOPRIL 10 MG TABLET PO SCH (09:28)
[2024-09-06 09:29] LABS: PHOSPHOROUS 2.2 mg/dL (2.5-4.9)
[2024-09-06] MEDS: CLOPIDOGREL BISULFATE 75 MG TABLET (FP) PO SCH (09:29)
[2024-09-06] MEDS: ROSUVASTATIN CA 5 MG TABLET PO SCH (22:03)
[2024-09-07 02:59] VITALS: RESP 18
[2024-09-07 08:40] LABS: POTASSIUM 4.5 mmol/L (3.5-5.1)
[2024-09-07 08:50] LABS: ALBUMIN 3.1 g/dl (3.4-5.0); BLOOD UREA NITROGEN 19.8 mg/dL (7-18)
[2024-09-07 08:51] LABS: BILIRUBIN,TOTAL 0.5 mg/dL (0.2-1); CALCIUM 8.7 mg/dL (8.5-10.1)
[2024-09-07 08:52] LABS: TOT PROT 5.6 g/dl (6.4-8.2)
[2024-09-07 08:53] LABS: CREATININE 0.8 mg/dL (0.55-1.3)
[2024-09-07 09:01] VITALS: BP 133/62; PULSE 80; TEMP 98.2
[2024-09-07 09:14] LABS: ABSOLUTE IMMATURE GRANULOCYTES 0.11 x10^3/uL (0.0-0.031); BASOPHILS # 0.06 x10^3/uL (0.01-0.08); EOSINOPHILS # 0.18 x10^3/uL (0.04-0.36); HEMATOCRIT 31.1 % (34.1-44.9); HEMOGLOBIN 9.9 g/dL (11.2-15.7); MCHC 31.8 g/dl (32.2-35.5); MEAN CELL VOLUME 103.3 fl (79.4-94.8); MEAN PLT VOLUME 11.3 fl (9.4-12.3); MONOCYTE # 0.44 x10^3/uL (0.24-0.86); MONOCYTE % 7.4 % (4.7-12.5); PLATELET COUNT 285 x10^3/uL (182-369); RDW 15.7 % (12.4-16.6)
== END 2024-09-07 14:22 | disposition home or self-care (01) | DRG 638 ==
LOC: JER 19:10 → JERBED 21:10 → J5S 09-06 02:55
PROVIDERS: ADMIT Internal Medicine; ATTEND Family Medicine
DX: E11.00 Type 2 diabetes mellitus with hyperosmolarity without nonketotic hyperglycemic-hyperosmolar coma (NKHHC) (principal); N17.9 Acute kidney failure, unspecified; E11.51 Type 2 diabetes mellitus with diabetic peripheral angiopathy without gangrene; I10 Essential (primary) hypertension; E78.5 Hyperlipidemia, unspecified; F79 Unspecified intellectual disabilities
CPT/HCPCS: 0241U-QW; 36415; 71045-TC-FY; 80048; 80053; 81003; 82010; 82728; 82803; 82962; 83540; 83550; 83690; 83735; 83930; 84100; 85025; 87086; 87186; 93005; 93010; 99285-25

== ENCOUNTER 2024-11-22 08:20 | Observation (INO) | payer OTHER ==
[2024-11-22] MEDS: SODIUM CHLORIDE 500 ML IV STA (09:25)
[2024-11-22 09:44] LABS: HEMOGLOBIN 10.2 g/dL (11.2-15.7); MEAN PLT VOLUME 11.6 fl (9.4-12.3); RDW 16.2 % (12.4-16.6)
[2024-11-22 09:45] LABS: HEMATOCRIT 30.9 % (34.1-44.9); PLATELET COUNT 408 x10^3/uL (182-369)
[2024-11-22 10:10] LABS: CHLORIDE 101 mmol/L (98-107); POTASSIUM 4.9 mmol/L (3.5-5.1); SODIUM 133 mmol/L (136-145)
[2024-11-22 10:12] LABS: ALBUMIN 3.2 g/dl (3.4-5.0)
[2024-11-22 10:13] LABS: ANION GAP 10 mmol/L (4-13); BLOOD UREA NITROGEN 28.5 mg/dL (7-18); CO2 22 mmol/L (21-32); MAGNESIUM 1.6 mg/dL (1.8-2.4)
[2024-11-22 10:16] LABS: CREATININE 1.1 mg/dL (0.55-1.3); PHOSPHOROUS 3.1 mg/dL (2.5-4.9); SGPT/ALT 20 U/L (13-61)
[2024-11-22 10:17] LABS: BILIRUBIN,TOTAL 0.5 mg/dL (0.2-1)
[2024-11-22 10:18] LABS: ALK PHOS 141 U/L (45-117)
[2024-11-22 10:25] LABS: SGOT/AST 9 U/L (15-37)
[2024-11-22 10:29] LABS: GLUCOSE,RANDOM 472 mg/dL (74-106)
[2024-11-22] MEDS ORDERED: ACETAMINOPHEN 325 MG TABLET (FP) PO PRN (10:49)
[2024-11-22] MEDS: INSULIN REGULAR HUMAN 100 UNITS/ML *VIAL SQ ONE (10:58)
[2024-11-22] MEDS ORDERED: INSULIN ASPART SLIDING SCALE (NOVOLOG) 1 VIAL SQ ONE (11:38)
[2024-11-22] MEDS: INSULIN ASPART SLIDING SCALE (NOVOLOG) 1 VIAL SQ SCH (11:44)
[2024-11-22] MEDS: INSULIN GLARGINE (LANTUS) 100 UNITS/ML UNITS SQ SCH (21:47)
[2024-11-23] MEDS: INSULIN (NOVOLOG) ASPART 100 UNITS/ML 10ML VIAL SQ ONE (00:39)
[2024-11-23 08:31] LABS: HEMATOCRIT 32.1 % (34.1-44.9); HEMOGLOBIN 10.5 g/dL (11.2-15.7); MCHC 32.7 g/dl (32.2-35.5); MEAN CELL VOLUME 100.3 fl (79.4-94.8); PLATELET COUNT 414 x10^3/uL (182-369); RDW 16.6 % (12.4-16.6)
[2024-11-23 08:47] LABS: POTASSIUM 4.4 mmol/L (3.5-5.1)
[2024-11-23 08:49] LABS: CALCIUM 9.5 mg/dL (8.5-10.1)
[2024-11-23 08:50] LABS: BLOOD UREA NITROGEN 25.7 mg/dL (7-18)
[2024-11-23 08:53] LABS: CREATININE 0.8 mg/dL (0.55-1.3)
[2024-11-23 08:54] LABS: BILIRUBIN,TOTAL 0.3 mg/dL (0.2-1); TOT PROT 5.9 g/dl (6.4-8.2)
[2024-11-23] MEDS: LISINOPRIL 5 MG TABLET PO SCH (09:44)
[2024-11-23] MEDS: POLYETHYLENE GLYCOL (HEALTHYLAX) 3350 17 GM PACKET PO SCH (09:44)
[2024-11-23 11:24] VITALS: BMI 16.8
[2024-11-23] MEDS: INSULIN ASPART SLIDING SCALE (NOVOLOG) 1 VIAL SQ SCH (12:04)
[2024-11-23] MEDS: INSULIN GLARGINE (LANTUS) 100 UNITS/ML UNITS SQ ONE (12:07)
[2024-11-23] MEDS: INSULIN GLARGINE (LANTUS) 100 UNITS/ML UNITS SQ SCH (21:29)
[2024-11-24 08:02] LABS: HEMATOCRIT 27.8 % (34.1-44.9); HEMOGLOBIN 8.8 g/dL (11.2-15.7); MCHC 31.7 g/dl (32.2-35.5); MEAN PLT VOLUME 11.6 fl (9.4-12.3); PLATELET COUNT 353 x10^3/uL (182-369); RDW 16.9 % (12.4-16.6)
[2024-11-24 08:52] LABS: Reticulocyte % 1.89 % (0.5-1.7)
[2024-11-25 09:29] LABS: HEMATOCRIT 28.2 % (34.1-44.9); HEMOGLOBIN 8.8 g/dL (11.2-15.7); MCHC 31.2 g/dl (32.2-35.5); MEAN CELL VOLUME 103.3 fl (79.4-94.8); MEAN PLT VOLUME 11.8 fl (9.4-12.3); PLATELET COUNT 357 x10^3/uL (182-369)
[2024-11-25 18:07] LABS: FREE KAPPA,SERUM 23.9 mg/L (3.3-19.4)
[2024-11-26] MEDS: D5-1/2NS+20 MEQ KCL - 20 MEQ/1,000 ML INFUS.BAG IV SCH (16:58)
[2024-11-26] MEDS: BISACODYL 5 MG TABLET.DR (FP) PO ONE (17:25)
[2024-11-26] MEDS: PEG 3350/NA SULF BICARB CL/KCL 4000 ML SOLN.RECON PO ONE (17:25)
[2024-11-27 06:44] LABS: HEMOGLOBIN 8.1 g/dL (11.2-15.7); MCHC 31.2 g/dl (32.2-35.5); MEAN CELL VOLUME 103.6 fl (79.4-94.8); PLATELET COUNT 360 x10^3/uL (182-369); RDW 17.1 % (12.4-16.6)
[2024-11-27] MEDS ORDERED: DEXTROSE 50%-WATER 25 GM/50 ML DISP.SYRIN ONE (06:50)
[2024-11-27] MEDS ORDERED: DEXTROSE 50%-WATER - 25 GM/50 ML VIAL IVPUSH ONE (06:56)
[2024-11-27 07:01] LABS: PROTHROMBIN TIME (PATIENT) 10.9 SEC (9.7-13.0)
[2024-11-27 07:07] LABS: POTASSIUM 3.8 mmol/L (3.5-5.1)
[2024-11-27] MEDS: DEXTROSE 50%-WATER 25 GM/50 ML DISP.SYRIN IVPUSH ONE (07:10)
[2024-11-27 07:15] LABS: ALBUMIN 2.4 g/dl (3.4-5.0); CALCIUM 8.5 mg/dL (8.5-10.1)
[2024-11-27 07:17] LABS: BLOOD UREA NITROGEN 18.5 mg/dL (7-18)
[2024-11-27 07:20] LABS: CREATININE 0.5 mg/dL (0.55-1.3)
[2024-11-27 07:21] LABS: BILIRUBIN,TOTAL 0.5 mg/dL (0.2-1); TOT PROT 4.9 g/dl (6.4-8.2)
[2024-11-27] MEDS: PEG 3350/NA SULF BICARB CL/KCL 4000 ML SOLN.RECON PO ONE (11:22)
[2024-11-27 16:07] LABS: IG A QN SERUM. 160 mg/dL (64-422)
[2024-11-27] MEDS: BISACODYL 5 MG TABLET.DR (FP) PO ONE (20:20)
[2024-11-27] MEDS: INSULIN GLARGINE (LANTUS) 100 UNITS/ML UNITS SQ SCH (21:21)
[2024-11-28 07:37] LABS: ABSOLUTE IMMATURE GRANULOCYTES 0.23 x10^3/uL (0.0-0.031); BASOPHILS # 0.07 x10^3/uL (0.01-0.08); EOSINOPHIL % 3.1 % (0.7-5.8); EOSINOPHILS # 0.16 x10^3/uL (0.04-0.36); HEMATOCRIT 26.9 % (34.1-44.9); HEMOGLOBIN 8.5 g/dL (11.2-15.7); MCHC 31.6 g/dl (32.2-35.5); MEAN CELL VOLUME 102.7 fl (79.4-94.8); MEAN PLT VOLUME 11.3 fl (9.4-12.3); MONOCYTE % 11.8 % (4.7-12.5); PLATELET COUNT 381 x10^3/uL (182-369); RDW 17.2 % (12.4-16.6)
[2024-11-28 07:45] LABS: INR 1.04 (0.83-1.09); PROTHROMBIN TIME (PATIENT) 11.4 SEC (9.7-13.0)
[2024-11-28 08:01] LABS: POTASSIUM 4.1 mmol/L (3.5-5.1)
[2024-11-28 08:15] LABS: ALBUMIN 2.6 g/dl (3.4-5.0); CALCIUM 8.7 mg/dL (8.5-10.1)
[2024-11-28 08:19] LABS: CREATININE 0.6 mg/dL (0.55-1.3)
[2024-11-28 08:20] LABS: BILIRUBIN,TOTAL 0.4 mg/dL (0.2-1); TOT PROT 5.2 g/dl (6.4-8.2)
[2024-11-29] MEDS: INSULIN GLARGINE (LANTUS) 100 UNITS/ML UNITS SQ SCH (21:42)
[2024-11-30] MEDS ORDERED: INSULIN GLARGINE (LANTUS) 100 UNITS/ML UNITS SQ SCH (09:43)
[2024-11-30 13:31] VITALS: RESP 18
[2024-11-30] MEDS: SODIUM CHLORIDE 1,000 ML IV SCH (13:38)
[2024-11-30] MEDS: INSULIN ASPART SLIDING SCALE (NOVOLOG) 1 VIAL SQ SCH (16:55)
[2024-11-30] MEDS: INSULIN GLARGINE (LANTUS) 100 UNITS/ML UNITS SQ SCH (21:12)
[2024-12-01 06:49] VITALS: TEMP 98.2
[2024-12-01 08:26] LABS: POTASSIUM 4.5 mmol/L (3.5-5.1)
[2024-12-01 08:34] LABS: ALBUMIN 2.4 g/dl (3.4-5.0); BLOOD UREA NITROGEN 24.4 mg/dL (7-18); CREATININE 0.8 mg/dL (0.55-1.3)
[2024-12-01 08:35] LABS: BILIRUBIN,TOTAL 0.3 mg/dL (0.2-1); CALCIUM 9.1 mg/dL (8.5-10.1); TOT PROT 5.1 g/dl (6.4-8.2)
[2024-12-01 10:02] VITALS: BP 113/66; PULSE 98
[2024-12-01] MEDS ORDERED: INSULIN GLARGINE (LANTUS) 100 UNITS/ML UNITS SQ SCH (10:30)
[2024-12-01] MEDS ORDERED: METOCLOPRAMIDE HCL 10 MG TABLET (FP) PO PRN (10:34)
== END 2024-12-01 13:51 | disposition home health service (06) ==
LOC: JER 08:20 → JERBED 10:57 → INTOOBSV 10:57 → UNDOADMOB 10:57 → JERBED 12:02 → J7W 13:47
PROVIDERS: ADMIT Family Medicine
PROC: 3E0337Z Introduction of Electrolytic and Water Balance Substance into Peripheral Vein, Percutaneous Approach (ICD-10-PCS; 2024-11-22)
PROC: 3E013VG Introduction of Insulin into Subcutaneous Tissue, Percutaneous Approach (ICD-10-PCS; 2024-11-22)
PROC: 3E0337Z Introduction of Electrolytic and Water Balance Substance into Peripheral Vein, Percutaneous Approach (ICD-10-PCS; 2024-11-22)
PROC: 0DB68ZX Excision of Stomach, Via Natural or Artificial Opening Endoscopic, Diagnostic (ICD-10-PCS; 2024-11-28)
PROC: 0DBK8ZX Excision of Ascending Colon, Via Natural or Artificial Opening Endoscopic, Diagnostic (ICD-10-PCS; 2024-11-28)
PROC: 0DB98ZX Excision of Duodenum, Via Natural or Artificial Opening Endoscopic, Diagnostic (ICD-10-PCS; principal; 2024-11-28 10:00)
DX: E11.00 Type 2 diabetes mellitus with hyperosmolarity without nonketotic hyperglycemic-hyperosmolar coma (NKHHC) (principal); R97.0 Elevated carcinoembryonic antigen [CEA]; I10 Essential (primary) hypertension; R63.4 Abnormal weight loss; D53.9 Nutritional anemia, unspecified; E78.00 Pure hypercholesterolemia, unspecified; E43 Unspecified severe protein-calorie malnutrition; I73.9 Peripheral vascular disease, unspecified; E11.40 Type 2 diabetes mellitus with diabetic neuropathy, unspecified
CPT/HCPCS: 36415; 71045-TC-FY; 71260-TC; 74177-TC; 74183-TC; 76705-TC; 80053; 82010; 82378; 82525; 82607; 82728; 82746; 82784; 82962; 83036; 83540; 83550; 83615; 83735; 83883; 84100; 84155; 84165; 84439; 84443; 84484; 84630; 85025; 85610; 86301; 86850; 86900; 86901; 88300-TC; 88305-TC; 88342-TC; 93005; 93010; 93971; 96361; 96372; 96374; 97116-GP; 97162-GP; 99285-25; G0378

== ENCOUNTER 2024-12-05 16:19 | Observation (INO) | payer OTHER ==
[2024-12-05 16:44] VITALS: RESP 18; BMI 19.3
[2024-12-05 18:05] LABS: ABSOLUTE IMMATURE GRANULOCYTES 0.12 x10^3/uL (0.0-0.031); BASOPHILS # 0.03 x10^3/uL (0.01-0.08); EOSINOPHIL % 0.3 % (0.7-5.8); EOSINOPHILS # 0.02 x10^3/uL (0.04-0.36); MCHC 30.4 g/dl (32.2-35.5); MEAN CELL VOLUME 104.8 fl (79.4-94.8); MEAN PLT VOLUME 10.3 fl (9.4-12.3); MONOCYTE # 0.44 x10^3/uL (0.24-0.86); MONOCYTE % 7.1 % (4.7-12.5); RDW 17.2 % (12.4-16.6)
[2024-12-05 18:29] LABS: CO2 28.0 mmol/L (21-32)
[2024-12-05 18:30] LABS: GLUCOSE,RANDOM 67.0 mg/dL (74-106)
[2024-12-05 18:33] LABS: CREATININE 0.6 mg/dL (0.55-1.3); SGOT/AST 42.0 U/L (15-37); SGPT/ALT 38.0 U/L (13-61)
[2024-12-05 18:34] LABS: TOT PROT 5.9 g/dl (6.4-8.2)
[2024-12-05 18:35] LABS: ALK PHOS 102.0 U/L (45-117)
[2024-12-05] MEDS ORDERED: DEXTROSE 50%-WATER - 25 GM/50 ML VIAL IVPUSH PRN (22:59)
[2024-12-06] MEDS: DEXTROSE 50%-WATER 25 GM/50 ML DISP.SYRIN IVPUSH PRN (04:16)
[2024-12-06] MEDS: DEXTROSE 5%-WATER - 1,000 ML IV SCH (04:54)
[2024-12-06] MEDS ORDERED: DOCUSATE SODIUM 100 MG CAPSULE (FP) PO PRN (07:23)
[2024-12-06] MEDS ORDERED: ACETAMINOPHEN 325 MG TABLET (FP) PO PRN (07:23)
[2024-12-06 08:02] LABS: ABSOLUTE IMMATURE GRANULOCYTES 0.09 x10^3/uL (0.0-0.031); BASOPHILS # 0.03 x10^3/uL (0.01-0.08); EOSINOPHIL % 1.3 % (0.7-5.8); EOSINOPHILS # 0.07 x10^3/uL (0.04-0.36); MCHC 30.4 g/dl (32.2-35.5); MEAN CELL VOLUME 105.2 fl (79.4-94.8); MEAN PLT VOLUME 10.5 fl (9.4-12.3); MONOCYTE # 0.45 x10^3/uL (0.24-0.86); MONOCYTE % 8.6 % (4.7-12.5); RDW 17.5 % (12.4-16.6)
[2024-12-06 08:32] LABS: CO2 27.0 mmol/L (21-32); GLUCOSE,RANDOM 148.0 mg/dL (74-106)
[2024-12-06 08:35] LABS: CREATININE 0.7 mg/dL (0.55-1.3)
[2024-12-06] MEDS: AMINO ACIDS/PROTEIN HYDROLYS 30 ML LIQUID.PKT PO SCH (08:44)
[2024-12-06] MEDS: LISINOPRIL 10 MG TABLET PO SCH (09:16)
[2024-12-06] MEDS: CLOPIDOGREL BISULFATE 75 MG TABLET (FP) PO SCH (09:17)
[2024-12-06 10:51] LABS: IRON SERUM 63.0 ug/dL (50-175)
[2024-12-06 17:15] LABS: N-TERMINAL BNP 518.9 pg/ml (5-125)
[2024-12-06] MEDS: INSULIN ASPART SLIDING SCALE (NOVOLOG) 1 VIAL SQ SCH (17:40)
[2024-12-06] MEDS: ROSUVASTATIN CA 5 MG TABLET PO SCH (21:15)
[2024-12-06] MEDS: INSULIN GLARGINE (LANTUS) 100 UNITS/ML UNITS SQ SCH (21:15)
[2024-12-07] MEDS: DEXTROSE 50%-WATER 25 GM/50 ML DISP.SYRIN IVPUSH ONE (04:22)
[2024-12-07 15:17] VITALS: BP 113/50; PULSE 95; TEMP 98.2
== END 2024-12-07 17:58 | disposition home health service (06) ==
LOC: JER 16:19 → JERBED 18:47 → J7W 20:04
PROVIDERS: ADMIT Family Medicine; ATTEND Family Medicine
PROC: 3E0337Z Introduction of Electrolytic and Water Balance Substance into Peripheral Vein, Percutaneous Approach (ICD-10-PCS; principal; 2024-12-05)
PROC: 3E013VG Introduction of Insulin into Subcutaneous Tissue, Percutaneous Approach (ICD-10-PCS; 2024-12-05)
DX: E11.649 Type 2 diabetes mellitus with hypoglycemia without coma (principal); I10 Essential (primary) hypertension; E78.5 Hyperlipidemia, unspecified; D64.9 Anemia, unspecified; I73.9 Peripheral vascular disease, unspecified; F79 Unspecified intellectual disabilities
CPT/HCPCS: 36415; 71045-TC-FY; 80048; 80053; 82728; 82962; 83540; 83550; 83880; 84466; 85025; 93005; 93010; 93306-TC; 96361; 96372; 96374; 99285-25; E0186; G0378